=== PATIENT | female | born 1950 | race Caucasian/White ===

== ENCOUNTER → 2017-12-11 | Outpatient (CLI) | payer MEDICARE, BC ==
[2015-10-16 14:56] VITALS: BP 117/65
[~2017-12-11] MED LIST: AMBIEN10 MG PO; ASPIR LOW81 MG PO; BACTRIM DS 8001 TAB PO; CALCIUM 500 + D1 TAB PO; CEPHALEXIN500 M1 PO; ESCITALOPRAM10 MG PO; GLUCOSAMINE & C1 CA1 PO; LEVOTHYROXINE0.05 MG PO; LEXAPRO10 MG PO; MULTIPLE VITAMI1 CAP PO; RITE AID KRILL500 MG PO; ST. JOSEPH81 M2 PO
[2017-12-11 14:12] LABS: BASO # 0.1 (0.02-0.10); EOS # 0.2 (0.04-0.40); EOS % 2.5 % (1.0-5.0); HEMATOCRIT 41.1 % (37.0-47.0); HEMOGLOBIN 13.2 g/dL (12.5-16.0); MEAN CELL VOLUME 87 fl (78-100); MEAN CORPUSCULAR HEMOGLOBIN 28 pg (27-31); MEAN CORPUSCULAR HGB CONC 32 g/dL (33-37); MEAN PLATELET VOLUME 10.1 fl (7.4-10.4); MONO # 0.6 (0.20-0.80); NEU # 5.8 (1.40-6.50); PLATELET COUNT 196 K/mm3 (130-400); RED BLOOD COUNT 4.72 M/mm3 (4.10-5.30); RED CELL DISTRIBUTION WIDTH 14.2 % (11.5-14.5); WHITE BLOOD COUNT 8.6 K/mm3 (4.8-10.8)
[2017-12-11 14:34] LABS: ALBUMIN 4.1 g/dL (3.5-5.0); BUN/CREATININE RATIO 27.7 (6.0-26.0); CALCIUM 8.7 mg/dL (8.4-10.2); POTASSIUM 3.8 mmol/L (3.6-5.0); TOTAL BILIRUBIN 0.5 mg/dL (0.2-1.3); TOTAL PROTEIN 7.2 g/dL (6.3-8.2)
== END ==
LOC: LAB 13:50
PROVIDERS: Nurse Practitioner Family
DX: Z00.00 Encounter for general adult medical examination without abnormal findings (principal); E78.2 Mixed hyperlipidemia; F41.1 Generalized anxiety disorder; E03.4 Atrophy of thyroid (acquired); Z85.850 Personal history of malignant neoplasm of thyroid

== ENCOUNTER → 2017-12-26 | Day surgery (SDC) | payer MEDICARE, BC ==
[2015-10-16 14:56] VITALS: BP 117/65
== END ==
LOC: MSO 14:31
DX: Z12.11 Encounter for screening for malignant neoplasm of colon (principal); K63.5 Polyp of colon; K64.8 Other hemorrhoids; R19.5 Other fecal abnormalities; Z80.0 Family history of malignant neoplasm of digestive organs; Z79.82 Long term (current) use of aspirin; F17.210 Nicotine dependence, cigarettes, uncomplicated; Z85.850 Personal history of malignant neoplasm of thyroid; F41.9 Anxiety disorder, unspecified
CPT/HCPCS: 00811; J2704; J7120

== ENCOUNTER → 2017-12-27 | Outpatient (CLI) | payer MEDICARE, BC ==
[2015-10-16 14:56] VITALS: BP 117/65
== END ==
LOC: RAD 12:51
DX: Z13.820 Encounter for screening for osteoporosis (principal); M81.0 Age-related osteoporosis without current pathological fracture; Z87.891 Personal history of nicotine dependence; Z90.710 Acquired absence of both cervix and uterus

== ENCOUNTER → 2017-12-27 | Outpatient (CLI) | payer MEDICARE, BC ==
[2015-10-16 14:56] VITALS: BP 117/65
== END ==
LOC: MAMMO 12:47
DX: Z12.31 Encounter for screening mammogram for malignant neoplasm of breast (principal)

== ENCOUNTER → 2018-01-30 | Outpatient (CLI) | payer MEDICARE, BC ==
[2015-10-16 14:56] VITALS: BP 117/65
[2018-01-31 02:12] LABS: PTH,INTACT 67.7 pg/mL (6.6-88.9)
[2018-01-31 08:06] LABS: CALCIUM, IONIZED, SERUM 1.25 mmol/L (1.19-1.41)
== END ==
LOC: LAB 12:02
PROVIDERS: Internal Medicine
DX: M81.0 Age-related osteoporosis without current pathological fracture (principal)

== ENCOUNTER 2018-12-04 13:12 | Emergency (ER) | payer MEDICARE, BC ==
[~2018-12-04] VITALS: Wt 88.4 kg
[2018-12-04 13:44] LABS: BASO # 0.1 (0.02-0.10); EOS # 0.2 (0.04-0.40); EOS % 1.9 % (1.0-5.0); HEMATOCRIT 40.9 % (37.0-47.0); HEMOGLOBIN 13.2 g/dL (12.5-16.0); LYMPH# 2.6 (1.50-4.00); MEAN CELL VOLUME 87 fl (78-100); MEAN CORPUSCULAR HEMOGLOBIN 28 pg (27-31); MEAN CORPUSCULAR HGB CONC 32 g/dL (33-37); MEAN PLATELET VOLUME 10.6 fl (7.4-10.4); MONO # 0.8 (0.20-0.80); NEU # 7.7 (1.40-6.50); PLATELET COUNT 242 K/mm3 (130-400); RED BLOOD COUNT 4.69 M/mm3 (4.10-5.30); RED CELL DISTRIBUTION WIDTH 14.3 % (11.5-14.5); WHITE BLOOD COUNT 11.3 K/mm3 (4.8-10.8)
[2018-12-04 13:54] LABS: ALBUMIN 4.1 g/dL (3.4-4.8)
[2018-12-04 13:55] LABS: POTASSIUM 4.1 mmol/L (3.5-5.1); SODIUM 140 mmol/L (136-145)
[2018-12-04 13:56] LABS: CALCIUM 9.3 mg/dL (8.3-10.5)
[2018-12-04 13:57] LABS: GLUCOSE 96 mg/dL (65-105); TOTAL PROTEIN 7.5 g/dL (6.2-8.1)
[2018-12-04 13:58] LABS: CARBON DIOXIDE 21 mmol/L (23-31)
[2018-12-04 13:59] LABS: TOTAL BILIRUBIN 0.3 mg/dL (0.2-1.2)
[2018-12-04 14:01] LABS: D-DIMER 0.45 mg/L FEU (0.15-0.50)
[2018-12-04 14:02] LABS: AST-SGOT 34 U/L (5-34)
[2018-12-04 14:04] LABS: ALT/SGPT 31 U/L (0-55)
[2018-12-04 14:16] LABS: TROPONIN-I < 0.03 ng/mL (<0.030)
[2018-12-04 14:41] LABS: URINE COLOR YELLOW
[2018-12-04 14:42] LABS: URINE APPEARANCE HAZY; URINE BILIRUBIN NEGATIVE (NEGATIVE); URINE BLOOD NEGATIVE (NEGATIVE); URINE GLUCOSE NEGATIVE (NEGATIVE); URINE KETONE NEGATIVE (NEGATIVE); URINE LEUKOCYTE ESTERASE NEGATIVE (NEGATIVE); URINE NITRATE NEGATIVE (NEGATIVE); URINE PROTEIN(semi-quant) TRACE mg/dL (NEGATIVE); URINE UROBILINOGEN NORMAL (NORMAL)
[2018-12-04] MEDS ORDERED: ZOLPIDEM TART10 MG PO (15:37)
[2018-12-04] MEDS ORDERED: GABAPENTIN TAB600 MG PO (15:38)
[2018-12-04] MEDS ORDERED: ERGOCALCIFER50000 IU PO (15:50)
[2018-12-04] MEDS ORDERED: MOTION SICKNESS25 M5 PO (16:05)
[2018-12-04 16:22] VITALS: BP 152/70
== END 2018-12-04 16:22 | disposition home or self-care (01) ==
LOC: ED 13:12
PROVIDERS: Nurse Practitioner Family
DX: H81.399 Other peripheral vertigo, unspecified ear (principal); R20.2 Paresthesia of skin; F17.210 Nicotine dependence, cigarettes, uncomplicated; E89.0 Postprocedural hypothyroidism; Z90.89 Acquired absence of other organs; Z90.49 Acquired absence of other specified parts of digestive tract; Z98.1 Arthrodesis status; Z79.82 Long term (current) use of aspirin
CPT/HCPCS: J7030

== ENCOUNTER → 2019-01-14 | Outpatient (CLI) | payer MEDICARE, BC ==
[~2019-01-14] MED LIST changes: +ERGOCALCIFER50000 IU PO; +GABAPENTIN TAB600 MG PO; +MOTION SICKNESS25 M5 PO; +ZOLPIDEM TART10 MG PO
[2019-01-14 12:32] LABS: BASO # 0.1 (0.02-0.10); EOS # 0.2 (0.04-0.40); EOS % 2.4 % (1.0-5.0); HEMATOCRIT 41.1 % (37.0-47.0); LYMPH# 2.3 (1.50-4.00); MEAN CELL VOLUME 88 fl (78-100); MEAN CORPUSCULAR HEMOGLOBIN 28 pg (27-31); MEAN CORPUSCULAR HGB CONC 32 g/dL (33-37); MEAN PLATELET VOLUME 10.3 fl (7.4-10.4); MONO # 0.6 (0.20-0.80); NEU # 6.9 (1.40-6.50); PLATELET COUNT 244 K/mm3 (130-400); RED BLOOD COUNT 4.69 M/mm3 (4.10-5.30); RED CELL DISTRIBUTION WIDTH 14.6 % (11.5-14.5); WHITE BLOOD COUNT 10.2 K/mm3 (4.8-10.8)
[2019-01-14 12:38] LABS: ALBUMIN 3.9 g/dL (3.4-4.8); POTASSIUM 3.8 mmol/L (3.5-5.1)
[2019-01-14 12:39] LABS: CALCIUM 9.2 mg/dL (8.3-10.5)
[2019-01-14 12:40] LABS: TOTAL PROTEIN 7.5 g/dL (6.2-8.1)
[2019-01-14 12:42] LABS: TOTAL BILIRUBIN 0.4 mg/dL (0.2-1.2)
[2019-01-14 14:12] LABS: ERYTHROCYTE SEDIMENTATION RATE 27 mm/hr (0-30)
== END ==
LOC: RAD 11:18 → LAB 11:18
PROVIDERS: Internal Medicine
DX: M53.3 Sacrococcygeal disorders, not elsewhere classified (principal); E78.2 Mixed hyperlipidemia; R73.01 Impaired fasting glucose; M81.0 Age-related osteoporosis without current pathological fracture; E03.4 Atrophy of thyroid (acquired); Z80.0 Family history of malignant neoplasm of digestive organs

== ENCOUNTER → 2019-01-16 | Outpatient (CLI) | payer MEDICARE, BC | LOC: MAMMO 14:29 | DX: Z12.31 Encounter for screening mammogram for malignant neoplasm of breast (principal) ==

== ENCOUNTER → 2019-10-24 | Outpatient (CLI) | payer MEDICARE, BC ==
[2019-10-24 17:47] LABS: BASO # 0.1 (0.02-0.10); EOS # 0.2 (0.04-0.40); EOS % 2.4 % (1.0-5.0); HEMATOCRIT 45.8 % (37.0-47.0); HEMOGLOBIN 14.7 g/dL (12.5-16.0); LYMPH# 2.2 (1.50-4.00); MEAN CELL VOLUME 87 fl (78-100); MEAN CORPUSCULAR HEMOGLOBIN 28 pg (27-31); MEAN CORPUSCULAR HGB CONC 32 g/dL (33-37); MEAN PLATELET VOLUME 10.5 fl (7.4-10.4); MONO # 0.6 (0.20-0.80); NEU # 6.1 (1.40-6.50); PLATELET COUNT 200 K/mm3 (130-400); RED BLOOD COUNT 5.27 M/mm3 (4.10-5.30); RED CELL DISTRIBUTION WIDTH 14.4 % (11.5-14.5); WHITE BLOOD COUNT 9.2 K/mm3 (4.8-10.8)
[2019-10-24 17:51] LABS: ALBUMIN 3.9 g/dL (3.4-4.8); POTASSIUM 3.9 mmol/L (3.5-5.1)
[2019-10-24 17:52] LABS: CALCIUM 8.4 mg/dL (8.3-10.5)
[2019-10-24 17:55] LABS: TOTAL BILIRUBIN 0.5 mg/dL (0.2-1.2)
[2019-10-24 18:49] LABS: ERYTHROCYTE SEDIMENTATION RATE 6 mm/hr (0-30)
== END ==
LOC: LAB 15:40
PROVIDERS: Internal Medicine
DX: E78.2 Mixed hyperlipidemia (principal); R73.01 Impaired fasting glucose; E03.4 Atrophy of thyroid (acquired); M81.0 Age-related osteoporosis without current pathological fracture; Z80.0 Family history of malignant neoplasm of digestive organs

== ENCOUNTER → 2019-12-10 | Outpatient (CLI) | payer MEDICARE, BC | LOC: MAMMO 12:43 | DX: Z13.820 Encounter for screening for osteoporosis (principal); M81.0 Age-related osteoporosis without current pathological fracture ==

== ENCOUNTER → 2020-04-23 | Outpatient (CLI) | payer MEDICARE, BC ==
[2020-04-23 14:54] LABS: BASO # 0.1 (0.02-0.10); EOS # 0.3 (0.04-0.40); EOS % 2.4 % (1.0-5.0); HEMATOCRIT 41.8 % (37.0-47.0); HEMOGLOBIN 13.3 g/dL (12.5-16.0); LYMPH# 2.4 (1.50-4.00); MEAN CELL VOLUME 90 fl (78-100); MEAN CORPUSCULAR HEMOGLOBIN 29 pg (27-31); MEAN CORPUSCULAR HGB CONC 32 g/dL (33-37); MEAN PLATELET VOLUME 10.1 fl (7.4-10.4); MONO # 0.5 (0.20-0.80); NEU # 7.2 (1.40-6.50); PLATELET COUNT 237 K/mm3 (130-400); RED BLOOD COUNT 4.66 M/mm3 (4.10-5.30); RED CELL DISTRIBUTION WIDTH 14.2 % (11.5-14.5); WHITE BLOOD COUNT 10.4 K/mm3 (4.8-10.8)
[2020-04-23 15:02] LABS: POTASSIUM 3.6 mmol/L (3.5-5.1)
[2020-04-23 15:04] LABS: CALCIUM 8.9 mg/dL (8.3-10.5)
[2020-04-23 15:05] LABS: TOTAL PROTEIN 7.3 g/dL (6.2-8.1)
[2020-04-23 15:07] LABS: TOTAL BILIRUBIN 0.4 mg/dL (0.2-1.2)
== END ==
LOC: LAB 14:36
PROVIDERS: Internal Medicine
DX: E78.2 Mixed hyperlipidemia (principal); E03.4 Atrophy of thyroid (acquired); K90.9 Intestinal malabsorption, unspecified

== ENCOUNTER → 2020-04-28 | Outpatient (CLI) | payer MEDICARE, BC | LOC: MAMMO 14:19 | DX: Z12.31 Encounter for screening mammogram for malignant neoplasm of breast (principal) ==

== ENCOUNTER → 2021-03-23 | Outpatient (CLI) | payer MEDICARE, BC ==
[2021-03-23 15:10] LABS: BASO # 0.08 K/mm3 (0.02-0.10); EOS # 0.21 K/mm3 (0.04-0.40); EOS % 1.8 % (1.0-5.0); HEMATOCRIT 42.2 % (37.0-47.0); HEMOGLOBIN 13.4 g/dL (12.5-16.0); LYMPH# 2.35 K/mm3 (1.50-4.00); MEAN CELL VOLUME 90 fl (78-100); MEAN CORPUSCULAR HEMOGLOBIN 29 pg (27-31); MEAN CORPUSCULAR HGB CONC 32 g/dL (33-37); MEAN PLATELET VOLUME 9.9 fl (7.4-10.4); MONO # 0.63 K/mm3 (0.20-0.80); NEU # 8.08 K/mm3 (1.40-6.50); PLATELET COUNT 234 K/mm3 (130-400); RED BLOOD COUNT 4.71 M/mm3 (4.10-5.30); RED CELL DISTRIBUTION WIDTH 13.7 % (11.5-14.5); WHITE BLOOD COUNT 11.4 K/mm3 (4.8-10.8)
[2021-03-23 15:18] LABS: POTASSIUM 4.2 mmol/L (3.5-5.1)
[2021-03-23 15:19] LABS: ALBUMIN 4.2 g/dL (3.4-4.8)
[2021-03-23 15:20] LABS: CALCIUM 9.4 mg/dL (8.3-10.5)
[2021-03-23 15:21] LABS: TOTAL PROTEIN 7.5 g/dL (6.2-8.1)
[2021-03-23 15:23] LABS: TOTAL BILIRUBIN 0.3 mg/dL (0.2-1.2)
[2021-03-23 16:36] LABS: ERYTHROCYTE SEDIMENTATION RATE 15 mm/hr (0-30)
== END ==
LOC: LAB 14:46
PROVIDERS: Internal Medicine
DX: R73.03 Prediabetes (principal); E03.4 Atrophy of thyroid (acquired); K90.9 Intestinal malabsorption, unspecified; E78.2 Mixed hyperlipidemia

== ENCOUNTER → 2021-03-24 | Outpatient (CLI) | payer MEDICARE, BC ==
[2021-03-24 09:31] LABS: PH-URINE 5.5 (5.0 - 8.0); URINE APPEARANCE CLEAR; URINE BILIRUBIN NEGATIVE (NEGATIVE); URINE BLOOD NEGATIVE (NEGATIVE); URINE COLOR YELLOW; URINE GLUCOSE NEGATIVE (NEGATIVE); URINE KETONE NEGATIVE (NEGATIVE); URINE LEUKOCYTE ESTERASE NEGATIVE (NEGATIVE); URINE MUCUS PRESENT (NOT PRESENT); URINE NITRATE NEGATIVE (NEGATIVE); URINE PROTEIN(semi-quant) NEGATIVE (NEGATIVE); URINE UROBILINOGEN NORMAL (NORMAL)
== END ==
LOC: RAD 09:13
PROVIDERS: Internal Medicine
DX: K76.0 Fatty (change of) liver, not elsewhere classified (principal); K57.30 Diverticulosis of large intestine without perforation or abscess without bleeding; R91.1 Solitary pulmonary nodule
CPT/HCPCS: Q9967

== ENCOUNTER → 2021-03-31 | Outpatient (CLI) | payer MEDICARE, BC | LOC: RAD 09:27 | DX: R19.07 Generalized intra-abdominal and pelvic swelling, mass and lump (principal); Z90.710 Acquired absence of both cervix and uterus; Z90.722 Acquired absence of ovaries, bilateral ==

== ENCOUNTER → 2021-05-04 | Outpatient (CLI) | payer MEDICARE, BC | LOC: MAMMO 03-23 14:30 | DX: Z12.31 Encounter for screening mammogram for malignant neoplasm of breast (principal) ==

== ENCOUNTER → 2021-12-20 | Outpatient (CLI) | payer MEDICARE, BC ==
[2021-12-20 14:47] LABS: ALBUMIN 4.1 g/dL (3.4-4.8)
[2021-12-20 14:50] LABS: TOTAL PROTEIN 7.6 g/dL (6.2-8.1)
[2021-12-20 14:52] LABS: TOTAL BILIRUBIN 0.6 mg/dL (0.2-1.2)
[2021-12-20 14:55] LABS: DIRECT BILIRUBIN 0.2 mg/dL (0.0-0.5)
== END ==
LOC: LAB 14:11
PROVIDERS: Dermatology MOHS-Micrographic Surgery
DX: L60.9 Nail disorder, unspecified (principal)

== ENCOUNTER → 2022-06-15 | Outpatient (CLI) | payer MEDICARE ==
[~2022-06-15] VITALS: Ht 152.4 cm; Wt 83.6 kg
[~2022-06-15] MED LIST changes: -ERGOCALCIFER50000 IU PO; +Vitamin D2 PO
[2022-06-15 15:22] VITALS: BP 118/59
[2022-06-15 16:10] VITALS: BP 106/68
== END ==
LOC: AMSURD 10:31
DX: M81.0 Age-related osteoporosis without current pathological fracture (principal)
CPT/HCPCS: J3489

== ENCOUNTER → 2022-06-21 | Outpatient (CLI) | payer MEDICARE ==
[2022-06-21 15:19] LABS: POTASSIUM 4.2 mmol/L (3.5-5.1)
[2022-06-21 15:20] LABS: CALCIUM 8.8 mg/dL (8.3-10.5)
[2022-06-21 15:22] LABS: TOTAL PROTEIN 7.2 g/dL (6.2-8.1)
[2022-06-21 15:23] LABS: TOTAL BILIRUBIN 0.4 mg/dL (0.2-1.2)
== END ==
LOC: LAB 14:55
PROVIDERS: Internal Medicine
DX: E78.2 Mixed hyperlipidemia (principal)

== ENCOUNTER → 2023-06-14 | Outpatient (CLI) | payer OTHER ==
[~2023-06-14] MED LIST changes: +RECLAST5 MG/100 M; +ROSUVASTATIN CA20 MG PO
[2023-06-14 16:30] LABS: BASO # 0.07 K/mm3 (0.02-0.10); HEMATOCRIT 40.2 % (37.0-47.0); HEMOGLOBIN 12.6 g/dL (12.5-16.0); LYMPH# 2.55 K/mm3 (1.50-4.00); MEAN CELL VOLUME 89 fl (78-100); MEAN CORPUSCULAR HEMOGLOBIN 28 pg (27-31); MEAN CORPUSCULAR HGB CONC 31 g/dL (33-37); MEAN PLATELET VOLUME 9.5 fl (7.4-10.4); MONO # 0.63 K/mm3 (0.20-0.80); NEU # 6.58 K/mm3 (1.40-6.50); PLATELET COUNT 207 K/mm3 (130-400); RED BLOOD COUNT 4.54 M/mm3 (4.10-5.30); RED CELL DISTRIBUTION WIDTH 14.9 % (11.5-14.5)
[2023-06-14 16:34] LABS: ALBUMIN 4.2 g/dL (3.4-4.8)
[2023-06-14 16:36] LABS: TOTAL PROTEIN 7.3 g/dL (6.2-8.1)
[2023-06-14 16:38] LABS: TOTAL BILIRUBIN 0.5 mg/dL (0.2-1.2)
[2023-06-14 16:43] LABS: MAGNESIUM 1.95 mg/dL (1.60-2.60)
[2023-06-14 18:07] LABS: PH-URINE 6.5 (5.0 - 8.0); URINE APPEARANCE CLOUDY (CLEAR); URINE COLOR YELLOW (YELLOW); URINE GLUCOSE NEGATIVE (NEGATIVE); URINE KETONE TRACE (NEGATIVE); URINE PROTEIN(semi-quant) TRACE (NEGATIVE)
[2023-06-14 18:08] LABS: URINE BILIRUBIN 1+ (NEGATIVE); URINE BLOOD NEGATIVE (NEGATIVE); URINE LEUKOCYTE ESTERASE NEGATIVE (NEGATIVE); URINE NITRATE NEGATIVE (NEGATIVE)
[2023-06-14 18:09] LABS: URINE MUCUS PRESENT (NOT PRESENT)
[2023-06-15 17:15] LABS: HEPATITIS C VIRUS ANTIBODY Negative (Negative)
[2023-06-15 20:54] LABS: T3 FREE 2.8 pg/mL (1.7-3.7)
== END ==
LOC: LAB 16:07
PROVIDERS: Internal Medicine
DX: Z12.11 Encounter for screening for malignant neoplasm of colon (principal); Z11.59 Encounter for screening for other viral diseases; K90.9 Intestinal malabsorption, unspecified; E03.4 Atrophy of thyroid (acquired); R73.01 Impaired fasting glucose; E78.2 Mixed hyperlipidemia; R00.2 Palpitations; Z85.850 Personal history of malignant neoplasm of thyroid

== ENCOUNTER → 2023-07-01 | Outpatient (CLI) | payer MEDICARE ==
[~2023-07-01] VITALS: Ht 149.9 cm; Wt 87.2 kg
[~2023-07-01] MED LIST changes: +Zoledronic Acid 100 ML IV ONE
[2023-07-01 12:23] VITALS: BP 138/81
== END ==
LOC: AMSURD 12:00
DX: M81.0 Age-related osteoporosis without current pathological fracture (principal)
CPT/HCPCS: J3489

== ENCOUNTER → 2023-11-24 | Outpatient (CLI) | payer MEDICARE ==
[~2023-11-24] MED LIST changes: -Zoledronic Acid 100 ML IV ONE
[2023-11-24 15:14] LABS: BASO # 0.03 K/mm3 (0.02-0.10); EOS # 0.27 K/mm3 (0.04-0.40); EOS % 2.9 % (1.0-5.0); HEMATOCRIT 41.4 % (37.0-47.0); LYMPH# 2.02 K/mm3 (1.50-4.00); MEAN CELL VOLUME 89 fl (78-100); MEAN CORPUSCULAR HEMOGLOBIN 28 pg (27-31); MEAN CORPUSCULAR HGB CONC 31 g/dL (33-37); MEAN PLATELET VOLUME 9.9 fl (7.4-10.4); MONO # 0.66 K/mm3 (0.20-0.80); NEU # 6.36 K/mm3 (1.40-6.50); PLATELET COUNT 211 K/mm3 (130-400); RED BLOOD COUNT 4.66 M/mm3 (4.10-5.30); WHITE BLOOD COUNT 9.4 K/mm3 (4.8-10.8)
[2023-11-24 15:20] LABS: ALBUMIN 4.2 g/dL (3.4-4.8); CALCIUM 9.8 mg/dL (8.3-10.5)
[2023-11-24 15:22] LABS: TOTAL PROTEIN 7.3 g/dL (6.2-8.1)
[2023-11-24 15:24] LABS: TOTAL BILIRUBIN 0.4 mg/dL (0.2-1.2)
[2023-11-24 15:30] LABS: MAGNESIUM 2.03 mg/dL (1.60-2.60); PROTHROMBIN TIME 10.2 SECONDS (9.0-12.0)
[2023-11-24 16:13] LABS: PH-URINE 6.5 (5.0 - 8.0); URINE APPEARANCE CLEAR (CLEAR); URINE BILIRUBIN NEGATIVE (NEGATIVE); URINE BLOOD NEGATIVE (NEGATIVE); URINE COLOR YELLOW (YELLOW); URINE GLUCOSE NEGATIVE (NEGATIVE); URINE KETONE NEGATIVE (NEGATIVE); URINE LEUKOCYTE ESTERASE NEGATIVE (NEGATIVE); URINE NITRATE NEGATIVE (NEGATIVE); URINE PROTEIN(semi-quant) NEGATIVE (NEGATIVE)
[2023-11-24 16:14] LABS: URINE MUCUS PRESENT (NOT PRESENT)
== END ==
LOC: LAB 14:48
PROVIDERS: Internal Medicine
DX: Z01.818 Encounter for other preprocedural examination (principal); R91.8 Other nonspecific abnormal finding of lung field; R73.03 Prediabetes

== ENCOUNTER 2024-01-09 08:37 | Outpatient (RCR) | payer MEDICARE | END 2024-02-05 | disposition home or self-care (01) | LOC: PT | DX: M25.561 Pain in right knee (principal) ==

== ENCOUNTER 2024-02-07 08:00 | Outpatient (RCR) | payer MEDICARE | END 2024-03-06 13:17 | disposition home or self-care (01) | LOC: PT 08:00 | DX: M25.561 Pain in right knee (principal); Z96.651 Presence of right artificial knee joint ==

== ENCOUNTER → 2024-06-24 | Outpatient (CLI) | payer MEDICARE, BC ==
[2024-06-24 14:19] LABS: BASO # 0.05 K/mm3 (0.02-0.10); EOS # 0.24 K/mm3 (0.04-0.40); EOS % 2.5 % (1.0-5.0); HEMATOCRIT 40.1 % (37.0-47.0); HEMOGLOBIN 12.6 g/dL (12.5-16.0); LYMPH# 2.14 K/mm3 (1.50-4.00); MEAN CELL VOLUME 86 fl (78-100); MEAN CORPUSCULAR HEMOGLOBIN 27 pg (27-31); MEAN CORPUSCULAR HGB CONC 31 g/dL (33-37); MONO # 0.64 K/mm3 (0.20-0.80); NEU # 6.51 K/mm3 (1.40-6.50); PLATELET COUNT 218 K/mm3 (130-400); RED BLOOD COUNT 4.66 M/mm3 (4.10-5.30); RED CELL DISTRIBUTION WIDTH 13.8 % (11.5-14.5); WHITE BLOOD COUNT 9.6 K/mm3 (4.8-10.8)
[2024-06-24 14:24] LABS: ALBUMIN 4.2 g/dL (3.4-4.8)
[2024-06-24 14:25] LABS: CALCIUM 9.4 mg/dL (8.3-10.5)
[2024-06-24 14:26] LABS: TOTAL PROTEIN 8.2 g/dL (6.2-8.1)
[2024-06-24 14:28] LABS: TOTAL BILIRUBIN 0.3 mg/dL (0.2-1.2)
[2024-06-24 14:33] LABS: MAGNESIUM 1.81 mg/dL (1.60-2.60)
== END ==
LOC: LAB 13:52
PROVIDERS: Internal Medicine
DX: Z12.11 Encounter for screening for malignant neoplasm of colon (principal); Z12.31 Encounter for screening mammogram for malignant neoplasm of breast; Z13.820 Encounter for screening for osteoporosis; M81.0 Age-related osteoporosis without current pathological fracture; E03.4 Atrophy of thyroid (acquired); E78.2 Mixed hyperlipidemia; R73.03 Prediabetes

== ENCOUNTER → 2024-06-24 | Outpatient (CLI) | payer MEDICARE, BC | LOC: MAMMO 13:48 | DX: Z12.31 Encounter for screening mammogram for malignant neoplasm of breast (principal); Z13.820 Encounter for screening for osteoporosis; M81.0 Age-related osteoporosis without current pathological fracture ==

== ENCOUNTER → 2024-06-25 | Outpatient (CLI) | payer MEDICARE, BC ==
[2024-06-25 09:40] LABS: URINE APPEARANCE CLEAR (CLEAR); URINE COLOR YELLOW (YELLOW)
[2024-06-25 09:41] LABS: URINE BILIRUBIN NEGATIVE (NEGATIVE); URINE BLOOD NEGATIVE (NEGATIVE); URINE GLUCOSE NEGATIVE (NEGATIVE); URINE KETONE TRACE (NEGATIVE); URINE LEUKOCYTE ESTERASE NEGATIVE (NEGATIVE); URINE MUCUS PRESENT (NOT PRESENT); URINE NITRATE NEGATIVE (NEGATIVE); URINE PROTEIN(semi-quant) NEGATIVE (NEGATIVE)
== END ==
LOC: LAB 09:18
PROVIDERS: Internal Medicine
DX: Z12.11 Encounter for screening for malignant neoplasm of colon (principal); M81.0 Age-related osteoporosis without current pathological fracture; E03.4 Atrophy of thyroid (acquired); E78.2 Mixed hyperlipidemia; R73.03 Prediabetes